=== PATIENT | female | born 1950 | race Caucasian/White ===

== ENCOUNTER → 2018-04-09 | Outpatient (CLI) | payer MEDICARE, OTHER ==
--- NOTE | 2018-04-09 18:35 | Diagnostic Imaging Report ---
PROCEDURE: US Thyroid. TECHNIQUE: Multiple real-time grayscale images were obtained of the thyroid in various projections. INDICATION: Thyroid nodules. Comparison made with prior examination from 10/04/2016. FINDINGS: Right lobe of the thyroid measures 5.8 x 1.6 x 1.4 cm. There is a well-circumscribed slightly hypoechoic nodule in the right lobe measuring 1.4 x 0.9 x 0.9 cm. This compares with the previous measurement of 1.2 x 0.9 cm. Left lobe measures 5.4 x 1.7 x 1.9 cm. There is a well-circumscribed slightly hypoechoic nodule on the left measuring 1.9 x 1.3 x 1.2 cm. This compares with the previous measurement of 1.5 x 1.2 cm. The lesion is predominantly solid, hypoechoic, and smoothly marginated without calcifications. However in light of the increase in size, this has a TI-RADS level of 4. IMPRESSION: Interval increase in size of the mass in the left lobe of the thyroid. This is moderately suspicious. Further evaluation with fine-needle aspiration is recommended. Dictated by: Dictated on workstation # [id number]
== END ==
LOC: RAD 12:41
PROVIDERS: ATTEND Otolaryngology Otolaryngology/Facial Plastic Surgery
DX: E04.2 Nontoxic multinodular goiter (principal)
CPT/HCPCS: 76536